=== PATIENT | female | born 1970 | race Caucasian/White ===

== ENCOUNTER 2018-08-08 22:31 | Emergency (ER) | payer OTHER ==
[~2018-08-08] VITALS: Ht 165.1 cm; Wt 99.8 kg
--- NOTE | 2018-08-08 22:46 | NUR ---
PT TO ER BED 2. AAOX4. AMBULATORTY. NAD. BREATHING EVEN AND UNLABORED. CAME IN WITH C/O CHEST PAIN, PRESSURE SENSATION IN THE MIDDLE OF THE CHEST THAT RADIATES TO THE BACK SCALE 5-7 THAT STARTED YESTERDAY AND GOT WORSE TODAY. JAW PAIN THAT STARTED ON Tuesday08/04/18. PATIENT ON MONITOR. AWAITING MD SMITH.
--- NOTE | 2018-08-08 23:08 | NUR ---
IV LINE OBTAINED ON R AC 20G. BLOOD DRAWN AND GIVEN TO BOW MAKER PRODUCTION AT BEDSIDE. XRAY AT BEDSIDE WELL. EKG DONE BY TECH.
[2018-08-08 23:23] LABS: BASOPHILS # (AUTO) 0.1 /CMM (0.0-0.2); HEMATOCRIT 37 % (33-45); HEMOGLOBIN 12.2 g/dL (11.5-14.8); LYMPHOCYTES # (AUTO) 2.4 /CMM (0.8-4.8); LYMPHOCYTES % (AUTO) 35.3 % (20.0-44.0); MEAN CORPUSCULAR HGB CONC 33 g/dl (31.0-36.0); MEAN CORPUSCULAR VOLUME 85 fL (82-100); MONOCYTES # (AUTO) 0.6 /CMM (0.1-1.30); MONOCYTES % (AUTO) 8.8 % (2.0-12.0); NEUTROPHILS # (AUTO) 3.5 /CMM (1.8-8.9); NEUTROPHILS % (AUTO) 51.9 % (43.0-81.0); PLATELET COUNT (AUTO) 226 /CMM (150-450); RED BLOOD CELL COUNT(AUTO) 4.34 MIL/uL (4.0-5.2); WHITE BLOOD COUNT (AUTO) 6.7 K/uL (4.3-11.0)
[2018-08-08 23:25] LABS: CALCIUM, SERUM 9.6 mg/dL (8.5-10.1); CARBON DIOXIDE 32 mmol/L (21-32); CHLORIDE 107 mmol/L (98-107); CREATININE 0.8 mg/dL (0.6-1.3); GLUCOSE 100 mg/dL (74-106); POTASSIUM 3.8 mmol/L (3.5-5.1); SODIUM SERUM 144 mmol/L (136-145); UREA NITROGEN, BLOOD 26 mg/dL (7-18)
[2018-08-08] MEDS ORDERED: ASPIRIN 81 MG TAB.CHEW ONE (23:28)
[2018-08-08] MEDS ORDERED: NITROGLYCERIN 0.4 MG/TAB BOTTLE ONE (23:28)
[2018-08-08] MEDS ORDERED: ASPIRIN 81 MG TAB.CHEW PO ONE (23:30)
[2018-08-08] MEDS ORDERED: NITROGLYCERIN 0.4 MG/TAB BOTTLE SL ONE (23:30)
--- NOTE | 2018-08-08 23:39 | NUR ---
5 MINS POST NITROGLYVERIN SL. PT VERBALIZED RELIEF, NO PRESSURE BEING FELT ON CHEST AND BACK. MD MADE AWARE.
--- NOTE | 2018-08-09 00:34 | NUR ---
PT VERBALIZED THAT THE PRESSURE IN HER CHEST AND BACK CAME BACK 06/25. MD NOTIFIED AND RECEIVED VERBAL ORDER TO GIVE PROTONIX 40MG IV.
[2018-08-09] MEDS ORDERED: PANTOPRAZOLE 40 MG VIAL ONE (00:35)
[2018-08-09] MEDS ORDERED: LIDOCAINE VISCOUS 2% UD 15 ML UDC MM ONE (01:00)
[2018-08-09] MEDS ORDERED: MAG HYDROX/AL HYDROX/SIMETH 30 ML UDC PO ONE (01:00)
[2018-08-09] MEDS ORDERED: PANTOPRAZOLE 40 MG VIAL IV ONE (01:00)
--- NOTE | 2018-08-09 01:21 | NUR ---
PT VERBALIZED THAT CHEST PRESSURE IS NOT PRESENT AT THIS MOMENT.
--- NOTE | 2018-08-09 03:00 | NUR ---
DPatient discharged to home in stable condition. Written and verbal after care instructions given. Patient verbalizes understanding of instruction.
[2018-08-09 03:21] VITALS: BP 108/68
== END 2018-08-09 03:00 | disposition home or self-care (01) ==
LOC: ER 22:37
DX: R07.89 Other chest pain (principal)
CPT/HCPCS: 36415 ×2; 71045; 80048; 84484 ×2; 85025; 85378; 93005 ×2; 96374; 99284; C9113